=== PATIENT | male | born 1985 | race Hispanic/Latino ===

== ENCOUNTER 2018-12-28 22:33 | Emergency (ER) | payer SELFPAY ==
[2018-12-29 02:42] LABS: Calcium 9.8 mg/dL (8.4-10.2); Hemolysis Index 27
[2018-12-29 02:47] LABS: Basophils # (Auto) 0.1 K/mm3 (0.0-0.1); Basophils % (Auto) 0.7 % (0.0-1.8); Eosinophils # (Auto) 0.3 K/mm3 (0.0-0.4); Eosinophils % (Auto) 3.2 % (0.0-4.3); Hematocrit 52.1 % (35.5-45.6); Hemoglobin 17.8 gm/dl (11.8-15.2); Lymphocytes # (Auto) 2.9 K/mm3 (1.2-5.4); Lymphocytes % (Auto) 27.4 % (13.4-35.0); Mean Corpuscular HGB Conc 34 % (32-34); Mean Corpuscular Volume 98 fl (84-94); Monocytes # (Auto) 0.6 K/mm3 (0.0-0.8); Monocytes % (Auto) 5.9 % (0.0-7.3); Platelet Count 189 K/mm3 (140-440); Red Blood Count 5.32 M/mm3 (3.65-5.03); Red Cell Distribution Width 13.1 % (13.2-15.2)
[2018-12-29 03:17] LABS: BUN/Creatinine Ratio 11; Blood Urea Nitrogen 8 mg/dL (9-20)
[2018-12-29] MEDS ORDERED: NACL 0.9% 1000 ML 1,000 ML IV ONE (03:21)
[2018-12-29] MEDS ORDERED: CATAPRES PO ONE (03:21)
[2018-12-29 03:32] LABS: Bilirubin,Urine NEG (Negative); Blood,Urine NEG (Negative); Color,Urine Yellow (Yellow); Mucus,Urine FEW /HPF; Protein,Urine <15 mg/dL mg/dL (Negative)
--- NOTE | 2018-12-29 03:35 | Emergency Department Report ---
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 The patient says that he previously was abusing/using Xanax, prescription opiates and heroin and that he last used about 48 hours ago. He went to [facility], where he says that he has a bed waiting for him, but was told to come to the emergency department for medical clearance. He feels very shaky, nauseated, and has body aches. He denies any other past medical history. ED Past Medical Hx - Past Medical History Previous Medical History?: No - Surgical History Past Surgical History?: No - Social History Smoking Status: Current Every Day Smoker Substance Use Type: Alcohol ED Review of Systems ROS: Stated complaint: MED CLEARANCE Other details as noted in HPI Constitutional: denies: fever, malaise Eyes: denies: eye pain, vision change ENT: denies: ear pain, throat pain Respiratory: denies: cough, shortness of breath Cardiovascular: denies: chest pain, palpitations Gastrointestinal: nausea. denies: abdominal pain, vomiting Genitourinary: denies: dysuria, discharge Musculoskeletal: myalgia. denies: joint swelling Skin: denies: rash, lesions Neurological: denies: headache, weakness Physical Exam - Physical Exam Vital Signs: Vital Signs 12/28/18 22:55 Temperature 98.3 F Pulse Rate 81 Respiratory 18 Rate Blood Pressure 169/107 O2 Sat by Pulse 99 Oximetry Physical Exam: GENERAL: The patient is well-developed well-nourished. HENT: Normocephalic. Atraumatic. Patient has moist mucous membranes. EYES: Extraocular motions are intact. NECK: Supple. Trachea is midline. CHEST/LUNGS: Clear to auscultation. There is no respiratory distress noted. HEART/CARDIOVASCULAR: Regular. There is no tachycardia. There is no murmur. ABDOMEN: Abdomen is soft, nontender. Patient has normal bowel sounds. There is no abdominal distention. SKIN: Skin is warm and dry. NEURO: The patient is awake, alert, and oriented. The patient is cooperative. The patient has no focal neurologic deficits. The patient has normal speech. He is slightly tremulous. MUSCULOSKELETAL: There is no tenderness or deformity. There is no limitation range of motion. There is no evidence of acute injury. PSYCH: Patient is anxious. ED Course Vital Signs 12/28/18 22:55 Temperature 98.3 F Pulse Rate 81 Respiratory 18 Rate Blood Pressure 169/107 O2 Sat by Pulse 99 Oximetry ED Medical Decision Making - Lab Data Result diagrams: 12/29/18 02:03 12/29/18 02:03 - Medical Decision Making This patient presented for a medical clearance so that he can go to [facility] for help with withdrawal and detox from benzodiazepines and opiates. Patient's labs have been mostly unremarkable. The urine drug screen was positive for benzodiazepines, opiates and marijuana. Blood Alcohol level negative. Patient was given some IV fluid resuscitation and Toradol. Vital signs stable throughout his ED course. He was given a dose of Catapres to try help with opiate withdrawals. The patient appears medically cleared to go to [facility]. The psych injection maintenance technician, Jenaro, confirmed that he does have a bed a vailable to him and transportation has been set up. Critical Care Time: No Critical care attestation.: If time is entered above; I have spent that time in minutes in the direct care of this critically ill patient, excluding procedure time. ED Disposition Clinical Impression: Medical clearance for psychiatric admission, Withdrawal from opioids Withdrawal from benzodiazepine Qualifiers: Complication of substance-induced condition: uncomplicated Qualified Code(s): F13.230 - Sedative, hypnotic or anxiolytic dependence with withdrawal, uncomplicated Disposition: [id number]/[id number] PSY HOSP/PSY UNIT Is pt being admited?: No Condition: Stable Instructions: Narcotic Abuse (ED), Opioid Withdrawal (ED) Time of Disposition: 05:55
[2018-12-29 03:40] LABS: Amphetamine Screen,Urine PRESUMPTIVE NEGATIVE; Cocaine Screen,Urine PRESUMPTIVE NEGATIVE; Methadone Screen,Urine PRESUMPTIVE NEGATIVE
[2018-12-29 03:57] LABS: Benzodiazepines Screen,Urine PRESUMPTIVE POSITIVE; Cannabinoid Screen,Urine PRESUMPTIVE POSITIVE; Opiate Screen,Urine PRESUMPTIVE POSITIVE
[2018-12-29] MEDS ORDERED: TORADOL IV ONE (05:37)
[2018-12-29 07:51] VITALS: BP 136/87
== END 2018-12-29 07:59 ==
LOC: ED 22:33
DX: F13.230 Sedative, hypnotic or anxiolytic dependence with withdrawal, uncomplicated (principal); F11.23 Opioid dependence with withdrawal; F17.200 Nicotine dependence, unspecified, uncomplicated
CPT/HCPCS: 36415; 80048; 80307; 81001; 85025; 96361; 96374; 99283; G0480; J1885; J7030; 80320